=== PATIENT | male | born 1940 | race African-American/Black ===

== ENCOUNTER 2024-03-11 19:16 | Inpatient (IN) | payer MEDICARE, OTHER ==
[~2024-03-11] VITALS: Ht 175.3 cm; Wt 51.7 kg
[2024-03-11] MEDS: methylPREDNISolone SOD SUCC 125 MG/2ML VIAL IV ONE (20:00)
[2024-03-11] MEDS ORDERED: methylPREDNISolone SOD SUCC 125 MG/2ML VIAL ONE (20:10)
[2024-03-11] MEDS ORDERED: IPRATROPIUM NEB FS 0.5 MG/2.5 ML AMPUL.NEB ONE (20:41)
[2024-03-11] MEDS ORDERED: ALBUTEROL FS 2.5 MG/3 ML VIAL.NEB ONE (20:41)
[2024-03-11 20:44] VITALS: O2SAT 96
[2024-03-11 20:45] VITALS: O2SAT 96
[2024-03-11] MEDS: IPRATROPIUM NEB FS 0.5 MG/2.5 ML AMPUL.NEB NEB ONE (20:45)
[2024-03-11] MEDS: ALBUTEROL FS 2.5 MG/3 ML VIAL.NEB CONTNEB ONE (20:45)
[2024-03-11 20:48] LABS: BASOPHILS % (AUTO) 0.3 % (0.0-2.0); EOSINOPHILS # (AUTO) 0.8 K/uL (0.0-0.7); EOSINOPHILS % (AUTO) 14.9 % (0.0-6.0); HEMATOCRIT 41 % (39-51); HEMOGLOBIN 12.8 g/dL (13.5-17.5); LYMPHOCYTES # (AUTO) 1.2 K/uL (0.8-4.8); LYMPHOCYTES % (AUTO) 24.1 % (20.0-44.0); MEAN CORPUSCULAR HEMOGLOBIN 25 PG (26.0-33.0); MEAN CORPUSCULAR HGB CONC 31 g/dl (31.0-36.0); MEAN CORPUSCULAR VOLUME 81 fL (80-96); MONOCYTES # (AUTO) 0.3 K/uL (0.1-1.30); NEUTROPHILS # (AUTO) 2.8 K/uL (1.8-8.9); NEUTROPHILS % (AUTO) 54.7 % (43.0-81.0); PLATELET COUNT (AUTO) 159 K/uL (150-450); RED BLOOD CELL COUNT(AUTO) 5.04 MIL/uL (4.5-6.0); RED CELL DISTRIBUTION WIDTH 15.2 % (11.5-15.0); WHITE BLOOD COUNT (AUTO) 5.1 K/uL (4.3-11.0)
[2024-03-11 21:02] LABS: ABG BASE EXCESS 3.1 mmol/L (-2.0-3.0); ABG OXYGEN SATURATION 92.9 % (94.0-98.0); ABG PCO2 48.2 mmHg (35.0-48.0); ABG PH 7.394 (7.350-7.450); ABG PO2 68.2 mmHg (83.0-108.0); ABG TOTAL HEMOGLOBIN 14.3 G/dL (13.5-17.5); COHb 0.3 % (0.5-1.5); O2Hb 92.6 % (94.0-97.0); SITE, ABG LEFT RADIAL
[2024-03-11 21:06] VITALS: O2SAT 100
[2024-03-11 21:07] LABS: CALCIUM, SERUM 8.9 mg/dL (8.5-10.1); CARBON DIOXIDE 33 mmol/L (21-32); CHLORIDE 102 mmol/L (98-107); CREATININE 0.9 mg/dL (0.6-1.3); GLUCOSE 98 mg/dL (74-106); POTASSIUM 4.4 mmol/L (3.5-5.1); SODIUM SERUM 137 mmol/L (136-145); UREA NITROGEN, BLOOD 6 mg/dL (7-18)
[2024-03-11 21:18] LABS: ALANINE AMINOTRANSFERASE 13 U/L (12-78); ALBUMIN 2.9 g/dL (3.4-5.0); ALKALINE PHOSPHATASE 103 U/L (46-116); ASPARTATE AMINOTRANSFERASE 20 U/L (15-37); BILIRUBIN,DIRECT 0.1 mg/dL (0.0-0.2); BILIRUBIN,TOTAL 0.3 mg/dL (0.2-1.0); TOTAL PROTEIN, SERUM 7.3 g/dL (6.4-8.2)
[2024-03-11] MEDS ORDERED: ASPIRIN 81 MG TAB.CHEW ONE (21:28)
[2024-03-11] MEDS: ASPIRIN EC 81 MG TABLET.DR PO ONE (21:29)
[2024-03-11] MEDS ORDERED: IOHEXOL-350 100 ML VIAL IV ONE (21:33)
[2024-03-11] MEDS ORDERED: IV NS 0.9% 250 ML IV ONE (21:33)
[2024-03-11] MEDS ORDERED: NITROGLYCERIN 0.4 MG/TAB BOTTLE SL PRN (22:00)
[2024-03-11] MEDS ORDERED: ACETAMINOPHEN 325 MG TABLET PO PRN (22:00)
[2024-03-11] MEDS ORDERED: MAG HYDROX/AL HYDROX/SIMETH 30 ML UDC PO PRN (22:00)
[2024-03-11] MEDS ORDERED: MAGNESIUM HYDROXIDE 30 ML UDC PO PRN (22:00)
[2024-03-11] MEDS ORDERED: IPRATROPIUM NEB FS 0.5 MG/2.5 ML AMPUL.NEB NEB PRN (22:00)
[2024-03-11] MEDS ORDERED: ZOLPIDEM TARTRATE 5 MG TABLET PO PRN (22:00)
[2024-03-11] MEDS ORDERED: Z GUARD REMEDY 4 OZ OINT TP PRN (22:00)
[2024-03-11] MEDS ORDERED: ALBUTEROL FS 2.5 MG/3 ML VIAL.NEB NEB PRN (22:00)
[2024-03-11 22:09] LABS: INR 1.04 (0.91-1.10); PARTIAL THROMBOPLASTIN TIME 22.5 SEC (24.3-34.3)
[2024-03-12 04:00] VITALS: BP 146/77; TEMP 98.5; O2SAT 96
[2024-03-12] MEDS: methylPREDNISolone SOD SUCC 40 MG/ML VIAL IV SCH (04:55)
[2024-03-12 06:25] LABS: BASOPHILS % (AUTO) 0.5 % (0.0-2.0); EOSINOPHILS % (AUTO) 0.4 % (0.0-6.0); HEMATOCRIT 43 % (39-51); HEMOGLOBIN 13.5 g/dL (13.5-17.5); LYMPHOCYTES # (AUTO) 0.5 K/uL (0.8-4.8); LYMPHOCYTES % (AUTO) 21.9 % (20.0-44.0); MEAN CORPUSCULAR HEMOGLOBIN 26 PG (26.0-33.0); MEAN CORPUSCULAR HGB CONC 32 g/dl (31.0-36.0); MEAN CORPUSCULAR VOLUME 81 fL (80-96); MONOCYTES % (AUTO) 0.8 % (2.0-12.0); NEUTROPHILS # (AUTO) 1.8 K/uL (1.8-8.9); NEUTROPHILS % (AUTO) 76.4 % (43.0-81.0); PLATELET COUNT (AUTO) 141 K/uL (150-450); RED BLOOD CELL COUNT(AUTO) 5.28 MIL/uL (4.5-6.0); RED CELL DISTRIBUTION WIDTH 15.2 % (11.5-15.0); WHITE BLOOD COUNT (AUTO) 2.4 K/uL (4.3-11.0)
[2024-03-12 06:58] LABS: ALANINE AMINOTRANSFERASE 14 U/L (12-78); ALKALINE PHOSPHATASE 113 U/L (46-116); ASPARTATE AMINOTRANSFERASE 21 U/L (15-37); BILIRUBIN,DIRECT 0.1 mg/dL (0.0-0.2); BILIRUBIN,TOTAL 0.4 mg/dL (0.2-1.0); CALCIUM, SERUM 9.3 mg/dL (8.5-10.1); CARBON DIOXIDE 35 mmol/L (21-32); CHLORIDE 101 mmol/L (98-107); CREATININE 0.8 mg/dL (0.6-1.3); GLUCOSE 132 mg/dL (74-106); MAGNESIUM 2.1 mg/dL (1.8-2.4); NT-PRO BNP 237 pg/mL (0-125); PHOSPHORUS 3.7 mg/dL (2.5-4.9); POTASSIUM 4.1 mmol/L (3.5-5.1); SODIUM SERUM 138 mmol/L (136-145); TOTAL PROTEIN, SERUM 7.6 g/dL (6.4-8.2); UREA NITROGEN, BLOOD 7 mg/dL (7-18)
[2024-03-12] MEDS: ASPIRIN 81 MG TAB.CHEW PO SCH (09:25)
[2024-03-12] MEDS: PANTOPRAZOLE 40 MG TABLET.DR PO SCH (09:25)
[2024-03-12 10:28] LABS: THYROID STIMULATING HORMONE 0.8 uIU/mL (0.358-3.74)
[2024-03-12] MEDS: hydrALAZINE HCL 50 MG TABLET PO SCH (10:54)
[2024-03-12] MEDS ORDERED: ALBU8.5H8 IH (13:14)
[2024-03-12] MEDS ORDERED: CLOP75TA15 PO (13:14)
[2024-03-12] MEDS ORDERED: FERR-68 PO (13:14)
[2024-03-12] MEDS ORDERED: FAMO20TA8 PO (13:14)
[2024-03-12] MEDS ORDERED: LISI10TA29 PO (13:14)
[2024-03-12] MEDS ORDERED: ATOR80TA PO (13:14)
[2024-03-12] MEDS ORDERED: ASPI-869 PO (13:14)
[2024-03-12] MEDS ORDERED: CARV25TA2 PO (13:14)
[2024-03-12] MEDS ORDERED: AMLO-213 PO (13:14)
[2024-03-12] MEDS: LEVOFLOXACIN 750 MG /D5W 150ML 150 ML IV SCH (13:23)
[2024-03-12] MEDS: IV NS 0.9% 250 ML IV PRN (13:28)
[2024-03-12] MEDS: ENOXAPARIN SODIUM 40 MG/0.4 ML DISP.SYRIN SQ SCH (15:07)
[2024-03-13 08:00] VITALS: BP 166/89; TEMP 97.9; O2SAT 98
[2024-03-13 09:04] LABS: HEMATOCRIT 44 % (39-51); HEMOGLOBIN 14.3 g/dL (13.5-17.5); LYMPHOCYTES # (AUTO) 0.6 K/uL (0.8-4.8); LYMPHOCYTES % (AUTO) 5.9 % (20.0-44.0); MEAN CORPUSCULAR HEMOGLOBIN 26 PG (26.0-33.0); MEAN CORPUSCULAR HGB CONC 32 g/dl (31.0-36.0); MEAN CORPUSCULAR VOLUME 80 fL (80-96); MONOCYTES # (AUTO) 0.2 K/uL (0.1-1.30); NEUTROPHILS # (AUTO) 9.2 K/uL (1.8-8.9); NEUTROPHILS % (AUTO) 92.1 % (43.0-81.0); PLATELET COUNT (AUTO) 173 K/uL (150-450); RED BLOOD CELL COUNT(AUTO) 5.56 MIL/uL (4.5-6.0); RED CELL DISTRIBUTION WIDTH 14.9 % (11.5-15.0)
[2024-03-13 09:33] LABS: CALCIUM, SERUM 9.5 mg/dL (8.5-10.1); CARBON DIOXIDE 26 mmol/L (21-32); CHLORIDE 102 mmol/L (98-107); GLUCOSE 122 mg/dL (74-106); MAGNESIUM 2.4 mg/dL (1.8-2.4); PHOSPHORUS 3.7 mg/dL (2.5-4.9); POTASSIUM 4.3 mmol/L (3.5-5.1); SODIUM SERUM 139 mmol/L (136-145); UREA NITROGEN, BLOOD 16 mg/dL (7-18)
[2024-03-13 12:00] VITALS: BP 140/74; TEMP 97.7; O2SAT 97
[2024-03-13 13:00] VITALS: BP 140/74; TEMP 97.7; O2SAT 97
[2024-03-13 17:00] VITALS: BP 122/70; TEMP 98.2; O2SAT 95
[2024-03-13] MEDS: ENSURE ENLIVE 237 ML LIQUID (VANILLA) PO SCH (17:33)
[2024-03-13 21:00] VITALS: BP 129/64; TEMP 97.8; O2SAT 99
[2024-03-14] VITALS (7 sets, daily range): BP systolic 124–142; BP diastolic 68–83; TEMP 97.6–98.2; O2SAT 95–99
[2024-03-14 06:35] LABS: BASOPHILS % (AUTO) 0.1 % (0.0-2.0); EOSINOPHILS % (AUTO) 0.1 % (0.0-6.0); HEMATOCRIT 43 % (39-51); LYMPHOCYTES # (AUTO) 0.5 K/uL (0.8-4.8); MEAN CORPUSCULAR HEMOGLOBIN 26 PG (26.0-33.0); MEAN CORPUSCULAR HGB CONC 32 g/dl (31.0-36.0); MEAN CORPUSCULAR VOLUME 79 fL (80-96); MONOCYTES # (AUTO) 0.3 K/uL (0.1-1.30); NEUTROPHILS # (AUTO) 9.8 K/uL (1.8-8.9); NEUTROPHILS % (AUTO) 91.8 % (43.0-81.0); PLATELET COUNT (AUTO) 79 K/uL (150-450); RED BLOOD CELL COUNT(AUTO) 5.46 MIL/uL (4.5-6.0); RED CELL DISTRIBUTION WIDTH 15.6 % (11.5-15.0); WHITE BLOOD COUNT (AUTO) 10.7 K/uL (4.3-11.0)
[2024-03-14 06:38] LABS: CALCIUM, SERUM 9.6 mg/dL (8.5-10.1); CARBON DIOXIDE 31 mmol/L (21-32); CHLORIDE 106 mmol/L (98-107); CREATININE 1.1 mg/dL (0.6-1.3); GLUCOSE 121 mg/dL (74-106); MAGNESIUM 2.5 mg/dL (1.8-2.4); PHOSPHORUS 4.1 mg/dL (2.5-4.9); POTASSIUM 4.1 mmol/L (3.5-5.1); SODIUM SERUM 142 mmol/L (136-145); UREA NITROGEN, BLOOD 24 mg/dL (7-18)
[2024-03-14] MEDS: CARVEDILOL 12.5 MG TABLET PO SCH (08:16)
[2024-03-14] MEDS: FERROUS SULFATE (325 MG) 325 MG/TAB TABLET PO SCH (08:17)
[2024-03-14] MEDS: CLOPIDOGREL BISULFATE 75 MG TABLET PO SCH (08:17)
[2024-03-14] MEDS: ASPIRIN EC 325 MG TABLET.DR PO SCH (08:17)
[2024-03-14] MEDS: METOPROLOL TARTRATE 50 MG TABLET PO SCH (12:15)
[2024-03-14] MEDS: LEVOFLOXACIN 750 MG /D5W 150ML 150 ML IV SCH (12:17)
[2024-03-14 20:16] LABS: ANISOCYTOSIS 1+; LYMPHOCYTES % (MANUAL) 8 % (16-48); MONOCYTES % (MANUAL) 2 % (0-11.0); NEUTROPHILS % (MANUAL) 90 (42-76); PLATELET ESTIMATE DECREASED
[2024-03-14 20:17] LABS: TARGET CELLS 1+
[2024-03-14] MEDS: ATORVASTATIN 40 MG TABLET PO SCH (21:35)
[2024-03-15 01:00] VITALS: BP 145/76; TEMP 98.1; O2SAT 97
[2024-03-15 05:00] VITALS: BP 148/75; TEMP 98.1; O2SAT 97
[2024-03-15 07:57] LABS: HEMATOCRIT 43 % (39-51); HEMOGLOBIN 14.1 g/dL (13.5-17.5); LYMPHOCYTES # (AUTO) 0.7 K/uL (0.8-4.8); LYMPHOCYTES % (AUTO) 7.8 % (20.0-44.0); MEAN CORPUSCULAR HEMOGLOBIN 26 PG (26.0-33.0); MEAN CORPUSCULAR HGB CONC 33 g/dl (31.0-36.0); MEAN CORPUSCULAR VOLUME 79 fL (80-96); MONOCYTES # (AUTO) 0.3 K/uL (0.1-1.30); MONOCYTES % (AUTO) 3.5 % (2.0-12.0); NEUTROPHILS # (AUTO) 7.6 K/uL (1.8-8.9); NEUTROPHILS % (AUTO) 88.7 % (43.0-81.0); PLATELET COUNT (AUTO) 160 K/uL (150-450); RED BLOOD CELL COUNT(AUTO) 5.44 MIL/uL (4.5-6.0); RED CELL DISTRIBUTION WIDTH 15.5 % (11.5-15.0); WHITE BLOOD COUNT (AUTO) 8.6 K/uL (4.3-11.0)
[2024-03-15 08:21] LABS: CALCIUM, SERUM 9.5 mg/dL (8.5-10.1); CARBON DIOXIDE 32 mmol/L (21-32); CHLORIDE 105 mmol/L (98-107); GLUCOSE 109 mg/dL (74-106); MAGNESIUM 2.5 mg/dL (1.8-2.4); PHOSPHORUS 4.6 mg/dL (2.5-4.9); POTASSIUM 4.4 mmol/L (3.5-5.1); SODIUM SERUM 142 mmol/L (136-145); UREA NITROGEN, BLOOD 23 mg/dL (7-18)
[2024-03-15 09:00] VITALS: BP 150/85; TEMP 98; O2SAT 97
[2024-03-15 10:07] LABS: *SPE A/G RATIO 0.8 (0.7-1.7); *SPE ALPHA-1-GLOBULIN 0.2 g/dL (0.0-0.4); *SPE ALPHA-2-GLOBULIN 0.8 g/dL (0.4-1.0); *SPE BETA GLOBULIN 1.2 g/dL (0.7-1.3); *SPE GLOBULIN, TOTAL 3.9 g/dL (2.2-3.9); *SPE M-SPIKE 0.4 g/dL (Not Observed); *SPE PROTEIN TOTAL 6.9 g/dL (6.0-8.5); *SPEGAMMA GLOBULIN 1.7 g/dL (0.4-1.8)
[2024-03-15] MEDS ORDERED: IV NS 0.9% 250 ML IV ONE (12:09)
[2024-03-15] MEDS ORDERED: IOHEXOL-350 100 ML VIAL IV ONE (12:09)
[2024-03-15] MEDS ORDERED: CT SWABBABLE VALVE TRANS SET 1 EA INFUS.SET MC ONE (12:09)
[2024-03-15] MEDS ORDERED: METOPROLOL TARTRATE INJ 5 MG/5 ML AMPUL ONE ×2 (12:23→12:26)
[2024-03-15] MEDS ORDERED: NITROGLYCERIN 0.4 MG/TAB BOTTLE ONE (12:23)
[2024-03-15] MEDS: METOPROLOL TARTRATE INJ 5 MG/5 ML AMPUL IVP PRN (12:23)
[2024-03-15] MEDS: NITROGLYCERIN 0.4 MG/TAB BOTTLE SL ONE (12:39)
[2024-03-15] MEDS ORDERED: LEVO750T46 PO (12:55)
[2024-03-15] MEDS ORDERED: ALBU8.5H8 INH (12:57)
[2024-03-15 13:00] VITALS: BP 130/67; TEMP 98.2; O2SAT 98
[2024-03-15 13:17] VITALS: BP 130/67
== END 2024-03-15 16:26 | disposition home or self-care (01) | DRG 193 ==
LOC: ER 19:24 → TELE1 22:58
PROVIDERS: ADMIT Nurse Practitioner Family; ATTEND Nurse Practitioner Family
DX: J15.9 Unspecified bacterial pneumonia (principal); I21.A1 Myocardial infarction type 2; J45.901 Unspecified asthma with (acute) exacerbation; E46 Unspecified protein-calorie malnutrition; Z68.1 Body mass index [BMI] 19.9 or less, adult; J44.0 Chronic obstructive pulmonary disease with (acute) lower respiratory infection; I10 Essential (primary) hypertension; Z79.82 Long term (current) use of aspirin; Z79.51 Long term (current) use of inhaled steroids; Z79.02 Long term (current) use of antithrombotics/antiplatelets; Z79.899 Other long term (current) drug therapy; E88.09 Other disorders of plasma-protein metabolism, not elsewhere classified; R79.89 Other specified abnormal findings of blood chemistry; Z87.891 Personal history of nicotine dependence; D69.6 Thrombocytopenia, unspecified; D72.819 Decreased white blood cell count, unspecified
CPT/HCPCS: 36415; 36600; 71045-TC; 75574; 80048-TC; 80061-TC; 80076-TC; 82803-TC; 83605-TC; 83735-TC; 83880; 84100-TC; 84155; 84165; 84439-TC; 84443-TC; 84484-TC; 85025-TC; 85378-TC; 85730-TC; 87040-TC; 87081-TC; 93307-TC; 94799-TC; A4223; G0378; J1650; J1956; J2919; J3490; J7050; Q9967

== ENCOUNTER 2025-01-18 12:35 | Inpatient (IN) | payer MEDICARE ==
[~2025-01-18] VITALS: Ht 165.1 cm; Wt 50.8 kg
[~2025-01-18 12:35] MED LIST: ALBU8.5H8 IH; ALBU8.5H8 INH; AMLO-213 PO; ASPI-869 PO; ATOR80TA PO; CARV25TA2 PO; CLOP75TA15 PO; FAMO20TA8 PO; FERR-68 PO; LEVO750T46 PO; LISI10TA29 PO
[2025-01-18] MEDS ORDERED: IPRATROPIUM NEB FS 0.5 MG/2.5 ML AMPUL.NEB ONE (12:44)
[2025-01-18] MEDS ORDERED: ALBUTEROL FS 2.5 MG/3 ML VIAL.NEB ONE (12:44)
[2025-01-18] MEDS ORDERED: Magnesium 1GM/D5W 100ML PREMIX 200 ML IV ONE (12:48)
[2025-01-18 12:50] VITALS: O2SAT 100
[2025-01-18] MEDS: ALBUTEROL FS 2.5 MG/3 ML VIAL.NEB NEB ONE (12:51)
[2025-01-18] MEDS: IPRATROPIUM NEB FS 0.5 MG/2.5 ML AMPUL.NEB NEB ONE (12:51)
[2025-01-18 13:01] LABS: PLATELET COUNT (AUTO) 157 K/uL (150-450); RED BLOOD CELL COUNT(AUTO) 5.16 MIL/uL (4.5-6.0); RED CELL DISTRIBUTION WIDTH 16.2 % (11.5-15.0); WHITE BLOOD COUNT (AUTO) 3.2 K/uL (4.3-11.0)
[2025-01-18] MEDS: Magnesium 1GM/D5W 100ML PREMIX 200 ML IV ONE (13:04)
[2025-01-18 13:16] LABS: CALCIUM, SERUM 9.0 mg/dL (8.5-10.1); CREATININE 0.9 mg/dL (0.6-1.3); SODIUM SERUM 139 mmol/L (136-145); UREA NITROGEN, BLOOD 7 mg/dL (7-18)
[2025-01-18 13:24] LABS: LACTIC ACID 0.9 mmol/L (0.4-2.0)
[2025-01-18] MEDS ORDERED: ONDANSETRON HCL/PF 4 MG/2 ML VIAL IVP PRN (13:30)
[2025-01-18] MEDS ORDERED: ACETAMINOPHEN 325 MG TABLET PO PRN (13:30)
[2025-01-18] MEDS ORDERED: MORPHINE SULFATE INJ 2 MG/ML DISP.SYRIN IV PRN (13:30)
[2025-01-18] MEDS ORDERED: ALBUTEROL FS 2.5 MG/0.5 ML VIAL.NEB NEB PRN (13:30)
[2025-01-18 13:50] VITALS: O2SAT 100
[2025-01-18 16:14] LABS: ABG BASE EXCESS 2.0 mmol/L (-2.0-3.0); ABG OXYGEN SATURATION 98.7 % (94.0-98.0); ABG PCO2 55.8 mmHg (35.0-48.0); ABG PH 7.336 (7.350-7.450); ABG PO2 150.1 mmHg (83.0-108.0); ABG TOTAL HEMOGLOBIN 14.6 G/dL (13.5-17.5); FLOW, BLOOD GAS 6.00 L/min (0.00-30.00); FRACTIONATED INSPIRED OXYGEN 44.0 %; SITE, ABG RIGHT RADIAL
[2025-01-18] MEDS: LEVOFLOXACIN 750 MG /D5W 150ML 150 ML IV SCH (17:00)
[2025-01-18 17:50] VITALS: BP 185/93; TEMP 98.1; O2SAT 100
[2025-01-18] MEDS: ENOXAPARIN SODIUM 40 MG/0.4 ML DISP.SYRIN SQ SCH (18:57)
[2025-01-18] MEDS: hydrALAZINE HCL IV 20 MG VIAL IV PRN (18:58)
[2025-01-18] MEDS: FAMOTIDINE (20 MG) 20 MG TABLET PO PRN (18:59)
[2025-01-18 20:00] VITALS: BP 112/98; TEMP 97.5; O2SAT 99
[2025-01-18] MEDS: ALBUTEROL FS 2.5 MG/3 ML VIAL.NEB NEB SCH (20:04)
[2025-01-18] MEDS: IPRATROPIUM NEB FS 0.5 MG/2.5 ML AMPUL.NEB NEB SCH (20:04)
[2025-01-18 20:15] VITALS: O2SAT 97
[2025-01-18 20:30] VITALS: O2SAT 100
[2025-01-19] VITALS (13 sets, daily range): BP systolic 102–129; BP diastolic 57–75; TEMP 97.8–97.9; O2SAT 97–100
[2025-01-19 07:17] LABS: PLATELET COUNT (AUTO) 163 K/uL (150-450); RED BLOOD CELL COUNT(AUTO) 5.50 MIL/uL (4.5-6.0); RED CELL DISTRIBUTION WIDTH 16.1 % (11.5-15.0); WHITE BLOOD COUNT (AUTO) 3.8 K/uL (4.3-11.0)
[2025-01-19 07:49] LABS: ASPARTATE AMINOTRANSFERASE 22.0 U/L (15-37); CALCIUM, SERUM 9.5 mg/dL (8.5-10.1); CREATININE 0.9 mg/dL (0.6-1.3); PHOSPHORUS 4.2 mg/dL (2.5-4.9); SODIUM SERUM 140.0 mmol/L (136-145); TOTAL PROTEIN, SERUM 7.3 g/dL (6.4-8.2); UREA NITROGEN, BLOOD 14.0 mg/dL (7-18)
[2025-01-19] MEDS: AMLODIPINE BESYLATE 10 MG TABLET PO SCH (08:49)
[2025-01-19] MEDS: FERROUS SULFATE (325 MG) 325 MG/TAB TABLET PO SCH (08:49)
[2025-01-19] MEDS: ASPIRIN EC 325 MG TABLET.DR PO SCH (08:49)
[2025-01-19] MEDS: LISINOPRIL (10MG) 10 MG TABLET PO SCH (08:50)
[2025-01-19] MEDS: CARVEDILOL 12.5 MG TABLET PO SCH (08:50)
[2025-01-19] MEDS: LEVOFLOXACIN (250MG) 250 MG TABLET PO SCH (20:53)
[2025-01-19] MEDS: OLANZAPINE 10 MG VIAL IM ONE (21:49)
[2025-01-20 01:42] VITALS: O2SAT 97
[2025-01-20 01:56] VITALS: O2SAT 100
[2025-01-20 04:00] VITALS: BP 118/75; TEMP 97.3
[2025-01-20 08:00] VITALS: BP 137/83; TEMP 98.3; O2SAT 99
[2025-01-20] MEDS ORDERED: FLUT1DIS3 INH (08:31)
[2025-01-20] MEDS ORDERED: PRED20TA PO (08:31)
[2025-01-20] MEDS ORDERED: LEVO750T46 PO (08:31)
[2025-01-20 12:00] VITALS: BP 137/83; TEMP 98.3; O2SAT 99
== END 2025-01-20 14:16 | disposition home or self-care (01) | DRG 193 ==
LOC: ER 12:38 → ICUOV 16:14 → TELE1 17:27 → TELE-TD 17:28 → MEDSG1 01-19 09:30
PROVIDERS: ADMIT Internal Medicine; ATTEND Internal Medicine
PROC: 5A09357 Assistance with Respiratory Ventilation, Less than 24 Consecutive Hours, Continuous Positive Airway Pressure (ICD-10-PCS; principal; 2025-01-18)
DX: J18.9 Pneumonia, unspecified organism (principal); J96.01 Acute respiratory failure with hypoxia; J96.02 Acute respiratory failure with hypercapnia; J44.0 Chronic obstructive pulmonary disease with (acute) lower respiratory infection; J45.902 Unspecified asthma with status asthmaticus; J44.1 Chronic obstructive pulmonary disease with (acute) exacerbation; J47.0 Bronchiectasis with acute lower respiratory infection; D50.9 Iron deficiency anemia, unspecified; I10 Essential (primary) hypertension; Z79.82 Long term (current) use of aspirin; Z79.51 Long term (current) use of inhaled steroids; Z79.899 Other long term (current) drug therapy; Z79.02 Long term (current) use of antithrombotics/antiplatelets; Z87.891 Personal history of nicotine dependence
CPT/HCPCS: 36415; 36600; 71045-TC; 71250-TC; 80048-TC; 80053-TC; 82803-TC; 83605-TC; 83735-TC; 83880; 84100-TC; 84484-TC; 85025-TC; 87040-TC; 87081-TC; 93307-TC; 94760-TC; 94799-TC; A4223; G0378; J0360; J1650; J1956; J2919; J3475; J3490; J7030